=== PATIENT | female | born 1950 | race Caucasian/White ===

== ENCOUNTER 2016-08-31 13:01 | Emergency (ER) | payer BC ==
[2016-08-31 13:19] VITALS: BP 158/92
--- NOTE | 2016-08-31 14:48 | UC ---
Respiratory Complaint HPI - HPI Summary HPI Summary: patient has had one day of chest congestion. hard to take a deep breath, denies any sinus congestion sore throat or fever. - History of Current Complaint Chief Complaint: UCGeneralIllness Stated Complaint: COUGH,CONGESTION Time Seen by Provider: 08/31/16 14:24 Hx Obtained From: Patient ?: No Onset/Duration: Sudden Onset, Lasting Hours Timing: Constant Severity Initially: Moderate Severity Currently: Moderate Pain Intensity: 5 Pain Scale Used: 0-10 Numeric Character: Cough: Nonproductive Aggravating Factors: Deep Breaths, Recumbent Position Alleviating Factors: Nothing Associated Signs And Symptoms: Positive: Dyspnea, Wheezing - Risk Factors Pulmonary Embolism Risk Factors: Negative Cardiac Risk Factors: Negative Pseudomonas Risk Factors: Negative Tuberculosis Risk Factors: Negative - Allergies/Home Medications Allergies/Adverse Reactions: Allergies Allergy/AdvReac Type Severity Reaction Status Date / Time No Known Allergies Allergy Verified 08/31/16 13:19 Home Medications: Home Medications Ascorbic Acid TAB* [Vitamin C TAB*] 500 mg PO DAILY 08/31/16 [History Confirmed 08/31/16] Cholecalciferol TAB* [Vitamin D TAB*] 1,000 unit PO DAILY 08/31/16 [History Confirmed 08/31/16] PMH/Surg Hx/FS Hx/Imm Hx Previously Healthy: Yes Endocrine History Of: Reports: Thyroid Disease - hypothyroid Respiratory History Of: Reports: Asthma - Surgical History Surgical History: Yes Surgery Procedure, Year, and Place: tubal ligation, Breast Augmentation 1999. bowel resection - Family History Known Family History: Positive: None - neg for asthma HTN or CAD - Social History Alcohol Use: Weekly Substance Use Type: None Smoking Status (MU): Former Smoker Type: Cigarettes Amount Used/How Often: 1PPD Length of Time of Smoking/Using Tobacco: 13 years Have You Smoked in the Last Year: No Review of Systems Constitutional: Negative Skin: Negative Eyes: Negative ENT: Negative Respiratory: Shortness Of Breath, Cough Cardiovascular: Negative Gastrointestinal: Negative Genitourinary: Negative Motor: Negative Neurovascular: Negative Musculoskeletal: Negative Neurological: Negative Psychological: Negative All Other Systems Reviewed And Are Negative: Yes Physical Exam Triage Information Reviewed: Yes Appearance: Well-Nourished, Ill-Appearing, Pain Distress Vital Signs: Initial Vital Signs Temp 98.0 F 08/31/16 13:15 Pulse 95 08/31/16 13:15 Resp 16 08/31/16 13:15 BP 158/92 08/31/16 13:15 Pulse Ox 97 08/31/16 13:15 Vital Signs Reviewed: Yes Eye Exam: Normal Eyes: Positive: Conjunctiva Clear ENT Exam: Normal ENT: Positive: Normal ENT inspection, Pharyngeal erythema, TMs normal Dental Exam: Normal Neck exam: Normal Neck: Positive: Supple, Nontender, No Lymphadenopathy Respiratory: Positive: Chest non-tender, No respiratory distress, No accessory muscle use, Crackles - LLL, Wheezing, Inspiration Cardiovascular Exam: Normal Cardiovascular: Positive: RRR, No Murmur, Pulses Normal Abdominal Exam: Normal Abdomen Description: Positive: Nontender, No Organomegaly, Soft Bowel Sounds: Positive: Present Musculoskeletal Exam: Normal Musculoskeletal: Positive: Strength Intact, ROM Intact, No Edema Neurological Exam: Normal Neurological: Positive: Alert, Muscle Tone Normal Psychological Exam: Normal Skin Exam: Normal UC Diagnostic Evaluation - Laboratory O2 Sat by Pulse Oximetry: 97 Respiratory Course/Dx - Course Course Of Treatment: hisotry obtained, exam performed, medication reviewed, chest xray ordered due to adventageaous lung sounds. - Differential Dx/Diagnosis Differential Diagnosis/HQI/PQRI: Aspiration, Asthma, Bronchitis, Influenza, Laryngitis, Sinusitis Provider Diagnoses: Bronchitis Discharge - Discharge Plan Condition: Stable Disposition: HOME Prescriptions: predniSONE TAB* [Deltasone TAB*] 40 mg PO DAILY #10 tab Patient Education Materials: Acute Bronchitis (ED) Additional Instructions: take the medication as prescribed. increase fluid intake, continue with the Advair daily and the albuterol every 4 hours as needed. follow upw ith any increse in symptoms.
--- NOTE | 2016-08-31 14:59 | RAD ---
INDICATION: Chest congestion. COMPARISON: Comparison is made with a prior chest x-ray study from March 28, 2009. TECHNIQUE: Dual-energy PA and lateral views of the chest were obtained. FINDINGS: The heart is within normal limits in size. Mediastinal and hilar contours appear within normal limits. The lungs are hyperinflated and clear. No pleural effusion is seen. IMPRESSION: NO EVIDENCE FOR ACTIVE CARDIOPULMONARY DISEASE.
== END 2016-08-31 15:21 | disposition home or self-care (01) ==
LOC: UCCORT 13:01
DX: J40 Bronchitis, not specified as acute or chronic (principal); Z87.891 Personal history of nicotine dependence
CPT/HCPCS: 71020; 99212; G0463

== ENCOUNTER 2016-12-15 12:51 | Emergency (ER) | payer BC ==
--- NOTE | 2016-12-15 14:43 | UC ---
Throat Pain/Nasal Brenton HPI - HPI Summary HPI Summary: pt presents wqith c/o of nasal congestion, cough and sinus pressure and pain X 7 -10 days. - History of Current Complaint Chief Complaint: UCRespiratory Stated Complaint: COUGH,CONGESTION/CHEST CONGESTION Time Seen by Provider: 12/15/16 14:27 Hx Obtained From: Patient ?: No Onset/Duration: Gradual Onset, Lasting Days - 7-10 Severity: Moderate Cough: Nonproductive Associated Signs & Symptoms: Positive: Sinus Discomfort Related History: Seasonal Allergies - Allergies/Home Medications Allergies/Adverse Reactions: Allergies Allergy/AdvReac Type Severity Reaction Status Date / Time environmental Allergy Eyes Uncoded 12/15/16 14:17 Itchy/Swollen/Red/Watery Home Medications: Home Medications Astelin 1 dose INH DAILY PRN 12/15/16 [History] Guaifenesin [Tussin Mucus & Chest Brenton] 100 mg PO ONCE PRN 12/15/16 [History Confirmed 12/15/16] PMH/Surg Hx/FS Hx/Imm Hx Previously Healthy: Yes Endocrine History Of: Reports: Thyroid Disease - hypothyroid Respiratory History Of: Reports: Asthma - Surgical History Surgical History: Yes Surgery Procedure, Year, and Place: tubal ligation, Breast Augmentation 1999. bowel resection - Family History Known Family History: Positive: Cardiac Disease - Social History Alcohol Use: Weekly Substance Use Type: None Smoking Status (MU): Former Smoker Type: Cigarettes Amount Used/How Often: 1PPD Length of Time of Smoking/Using Tobacco: 13 years Have You Smoked in the Last Year: No Review of Systems Constitutional: Fatigue Skin: Negative Eyes: Negative ENT: Other - nasal congestion, sinus pressure Respiratory: Shortness Of Breath, Cough Cardiovascular: Negative Gastrointestinal: Negative Genitourinary: Negative Motor: Negative Neurovascular: Negative Musculoskeletal: Negative Neurological: Headache Psychological: Negative All Other Systems Reviewed And Are Negative: Yes Physical Exam Triage Information Reviewed: Yes Appearance: Ill-Appearing Vital Signs: Initial Vital Signs Temp 97.9 F 12/15/16 14:10 Pulse 78 12/15/16 14:10 Resp 18 12/15/16 14:10 BP 155/107 12/15/16 14:10 Pulse Ox 95 12/15/16 14:10 Eye Exam: Normal ENT Exam: Other ENT: Positive: Nasal congestion, Other: - maxillary and frontal sinus tenderness , PND Neck exam: Normal Respiratory Exam: Normal Cardiovascular Exam: Normal Musculoskeletal Exam: Normal Neurological Exam: Normal Psychological Exam: Normal Skin Exam: Normal Throat Pain/Nasal Course/Dx - Course Course Of Treatment: I discussed with the pt her elevated BP at today's visit. Pt denies any prior history of HTN and agreed to follow up with her PCP as soon as possible. - Differential Dx/Diagnosis Differential Diagnosis/HQI/PQRI: Sinusitis Provider Diagnoses: sinusitis. cough. elevated blood pressure Discharge - Discharge Plan Condition: Stable Disposition: HOME Prescriptions: Amoxicillin (*) [Amoxicillin 875 MG (*)] 875 mg PO BID #14 tab Benzonatate CAP* [Tessalon 100 MG CAP*] 100 mg PO TID PRN #21 cap PRN Reason: Cough Pseudoephedrine TAB* [Sudafed TAB*] 60 mg PO Q12H #14 tab predniSONE TAB* [Deltasone TAB*] 20 mg PO DAILY #4 tab Patient Education Materials: Sinusitis (ED) Referrals: Mayda Green MD [Primary Care Provider] - If Needed (Please follow up with your PCP or return to clinic as needed. ) Additional Instructions: Please follow up with your PCP as soon as possible regarding the elevated blood pressure finding today or return to clinic.
[2016-12-15 15:00] VITALS: BP 151/102
== END 2016-12-15 14:56 | disposition home or self-care (01) ==
LOC: UCCORT 12:51
DX: J32.9 Chronic sinusitis, unspecified (principal); R05 Cough; R03.0 Elevated blood-pressure reading, without diagnosis of hypertension; E03.9 Hypothyroidism, unspecified
CPT/HCPCS: 99212; G0463

== ENCOUNTER 2018-03-20 16:15 | Emergency (ER) | payer BC ==
[2018-03-20 17:13] VITALS: BP 152/102
[2018-03-20] MEDS ORDERED: Acetaminophen TAB* 325 MG PO ONE (17:15)
--- NOTE | 2018-03-20 17:25 | UC ---
Shoulder Pain HPI - HPI Summary HPI Summary: 67 y/o female presents to the urgent care c/o RT shoulder pain since 03/14/2018. Pt reports she over used her shoulder s/p cleaning the house. Pt w/ Hx of Rotator cuff injury 4 years ago which resolved w/ PT. Pt has taking Ibuprofen PO 400mg PO prn w/o any improvement. Pain now is 9/10 w/ movement, sharp when raising her arm. Pt has appt w/ PCP DR Green on 03/30/2018. Pt dneies fever, numbness or tingling over the RT arm, SOB, chest pain, abdominal pain, N/ V/D - History of Current Complaint Chief Complaint: UCUpperExtremity Stated Complaint: RIGHT SHOULDER PAIN Time Seen by Provider: 03/20/18 17:24 Hx Obtained From: Patient Onset/Duration: Gradual Onset, Lasting Days - 6 days, Still Present, Worse Since - yesterday Timing: Constant Severity Initially: Mild Severity Currently: Moderate Location Of Pain: Is Discrete @ - RT shoulder Pain Intensity: 9 Pain Scale Used: 0-10 Numeric Character: Sharp, Aching, Throbbing Aggravating Factor(s): Movement, Lifting, Abduction Alleviating Factor(s): Rest, OTC Meds Associated Signs And Symptoms: Positive: Negative. Negative: Swelling, Redness , Bruising, Fever, Weakness, Numbness/Tingling Related History: Dominant Hand Right - Risk Factors Non-Orthopedic Risk Factor: Negative DVT Risk Factors: Negative Septic Arthritis Risk Factor: Negative - Allergies/Home Medications Allergies/Adverse Reactions: Allergies Allergy/AdvReac Type Severity Reaction Status Date / Time environmental Allergy Eyes Uncoded 03/20/18 17:02 Itchy/Swollen/Red/Watery Home Medications: Home Medications LORazepam TAB(*) [Ativan 1 MG TAB (*)] 2 mg QPM 03/20/18 [History Confirmed 05/28] Levothyroxine TAB* [Synthorid 112 MCG TAB*] 112 mcg QAM 03/20/18 [History Confirmed 03/20/18] buPROPion SR TAB* [Wellbutrin SR TAB*] 1 tab BID 03/20/18 [History Confirmed 05/28] PMH/Surg Hx/FS Hx/Imm Hx Previously Healthy: Yes Psychological History: Anxiety, Depression - Surgical History Surgical History: Yes Surgery Procedure, Year, and Place: tubal ligation, Breast Augmentation 1999. bowel resection - Family History Known Family History: Positive: Cardiac Disease, Hypertension, Diabetes - Social History Occupation: Retired Lives: With Family Alcohol Use: Weekly Alcohol Amount: "FEW TIMES A WEEK" Substance Use Type: None Smoking Status (MU): Former Smoker Type: Cigarettes Amount Used/How Often: 1PPD Length of Time of Smoking/Using Tobacco: 13 years Have You Smoked in the Last Year: No - Immunization History Most Recent Tetanus Shot: UTD Review of Systems Constitutional: Negative Skin: Negative Eyes: Negative ENT: Negative Respiratory: Negative Cardiovascular: Negative Gastrointestinal: Negative Genitourinary: Negative Motor: Negative Neurovascular: Negative Musculoskeletal: Decreased ROM - RT shoulder, Other: - RT shoulder pain Neurological: Negative Psychological: Negative Is Patient Immunocompromised?: No All Other Systems Reviewed And Are Negative: Yes Physical Exam Triage Information Reviewed: Yes Appearance: Well-Appearing, No Pain Distress, Well-Nourished Vital Signs: Initial Vital Signs Temp 97 F 03/20/18 16:55 Pulse 77 03/20/18 16:55 Resp 18 03/20/18 16:55 BP 152/102 03/20/18 16:55 Pulse Ox 100 03/20/18 16:55 Vital Signs Reviewed: Yes Eye Exam: Normal ENT Exam: Normal ENT: Positive: Normal ENT inspection, Hearing grossly normal, Pharynx normal Dental Exam: Normal Neck exam: Normal Neck: Positive: Supple, Nontender, No Lymphadenopathy Respiratory Exam: Normal Respiratory: Positive: Chest non-tender, Lungs clear, Normal breath sounds Cardiovascular Exam: Normal Cardiovascular: Positive: RRR, No Murmur, Pulses Normal, Brisk Capillary Refill Abdominal Exam: Normal Abdomen Description: Positive: Nontender, No Organomegaly, Soft. Negative: CVA Tenderness (R), CVA Tenderness (L) Bowel Sounds: Positive: Present Musculoskeletal: Positive: Other: - RT shoulder: The L shoulder is with/without obvious asymmetry or deformity when compared to the R shoulder. No surface trauma, ecchymosis, crepitus. No bony deformity or prominence of humeral head. No erythema, warmth. NT to palpation over the clavicle,scapula. positive tenderness over Acromioclavicular joint and humeral head with mild swelling, NT to palpation of the bicipital groove . NT to palpation of the muscles of the sternocleidomastoid, pectoralis, biceps/triceps, deltoid, trapezius, . Limited ROM due to pain especially in adduction and abduction.on both passive and active, internal/external rotation, flexion/extension. "empty can and drop arm test unable to perform due to pain. No axillary tenderness or lymphadenopathy. Normal sensation over the deltoid and fingers. Distal motor and neurovascular status is intact. Neurological Exam: Normal Psychological Exam: Normal Skin Exam: Normal Shoulder Course/Dx - Course Course Of Treatment: 67 y/o female presents to the urgent care c/o RT shoulder pain since Friday03/14/2018. Pt reports she over used her shoulder s/p cleaning the house. Pt w/ Hx of Rotator cuff injury 4 years ago which resolved w / PT. Pt has taking Ibuprofen PO 400mg PO prn w/o any improvement. Pain now is 9 /10 w/ movement, sharp when raising her arm. Pt has appt w/ PCP DR Green on 03/30. Pt dneies fever, numbness or tingling over the RT arm, SOB, chest pain, abdominal pain, N/V/D. Hx obtained. - Differential Dx/Diagnosis Differential Diagnosis/HQI/PQRI: Arthritis, Bursitis, Contusion, Fracture ( Closed), Sprain, Strain, Tendonitis Provider Diagnoses: 1- RT shoulder osteoarthritis. 2-RT shoulder Rotatorcuff tendonitis. 3-Uncontrolled HTN Discharge - Discharge Plan Condition: Stable Disposition: HOME Prescriptions: Naproxen TAB* [Naprosyn 250 mg TAB*] 250 mg PO Q8H PRN #30 tab PRN Reason: Pain Patient Education Materials: Rotator Cuff Tendinitis (ED), Osteoarthritis (ED) , Low-Sodium Diet (ED) Referrals: Jules Mauricio MD [Medical Doctor] - 3 Days Mayda Green MD [Primary Care Provider] - 1 Week Additional Instructions: 1-Please take Naproxen PO q8hrs as directed to alleviate pain and swelling. 2-Please apply ice, keep your shoulder immobilized with the shoulder sling for 3 -4 days and then resume movement slowly 3- Please f/u with Orthopedic DR Mauricio for further evaluation and treatment. 4-F/u PT referral for further management 5-Your BP is elevated today. please decrease salt in your diet, monitor BP and if it continues to be elevated please f/u with your PCP for further management - Billing Disposition and Condition Condition: STABLE Disposition: Home
--- NOTE | 2018-03-20 18:14 | RAD ---
Indication: RIGHT shoulder pain; possible repetitive motion injury. Previous rotator cuff injury. Comparison: August 31, 2016 chest radiograph. Technique: Internal rotation AP, external rotation Grashey, scapular Y, axillary views RIGHT shoulder Report: Negative for fracture. Normal acromioclavicular and glenohumeral joint alignment. Minimal degenerative arthropathy at the acromioclavicular joint with subchondral sclerosis and cystic change. Small inferior acromial bone spur. Sclerosis and cystic change at the greater tuberosity of the humerus typically seen in setting of chronic rotator cuff pathology. Mild glenohumeral joint osteophytosis and joint space narrowing. Negative for calcific tendinopathy. Unremarkable soft tissue contours. IMPRESSION: #. Mild acromioclavicular and glenohumeral joint osteoarthritis, small inferior acromial bone spur, and stigmata of chronic rotator cuff pathology.
== END 2018-03-20 18:42 | disposition home or self-care (01) ==
LOC: UCCORT 16:15
DX: M19.011 Primary osteoarthritis, right shoulder (principal); M75.101 Unspecified rotator cuff tear or rupture of right shoulder, not specified as traumatic; Z87.891 Personal history of nicotine dependence; F41.8 Other specified anxiety disorders
CPT/HCPCS: 99213; A9270-GY; G0463

== ENCOUNTER 2018-08-11 13:03 | Emergency (ER) | payer BC ==
[2018-08-11 14:03] VITALS: BP 165/90
--- NOTE | 2018-08-11 14:37 | UC ---
Respiratory Complaint HPI - HPI Summary HPI Summary: C/O cough x 4 days with some SOB and fatigue. Some congestion. No sore throat. No sinus pain or ear pain.No fevers sweats or chills. - History of Current Complaint Chief Complaint: UCRespiratory Stated Complaint: COUGH,FATIGUE Time Seen by Provider: 08/11/18 14:28 Hx Obtained From: Patient Onset/Duration: Sudden Onset, Lasting Days - 4, Still Present Timing: Constant Severity Initially: Mild Severity Currently: Moderate Pain Intensity: 0 Character: Cough: Productive - clear mostly Aggravating Factors: Recumbent Position Alleviating Factors: Bronchodilator Associated Signs And Symptoms: Positive: Wheezing, URI, Nasal Congestion Related History: Seasonal Allergies - Allergies/Home Medications Allergies/Adverse Reactions: Allergies Allergy/AdvReac Type Severity Reaction Status Date / Time environmental Allergy Eyes Uncoded 08/11/18 13:56 Itchy/Swollen/Red/Watery Home Medications: Home Medications Desvenlafaxine [Desvenlafaxine ER] 1 tab DAILY 08/11/18 [History Confirmed 08/11] Irbesartan 1 tab DAILY 08/11/18 [History Confirmed 08/11/18] Loratadine [Claritin 10 MG CAP] 1 tab DAILY 08/11/18 [History Confirmed 08/11/18 ] PMH/Surg Hx/FS Hx/Imm Hx Endocrine History: Hypothyroidism Cardiovascular History: Hypertension Respiratory History: Asthma - Surgical History Surgical History: Yes Surgery Procedure, Year, and Place: tubal ligation, Breast Augmentation 1999. bowel resection - Family History Known Family History: Positive: Cardiac Disease, Hypertension, Diabetes - Social History Occupation: Employed Full-time Lives: Alone Alcohol Use: Weekly Alcohol Amount: "FEW TIMES A WEEK" Substance Use Type: None Smoking Status (MU): Former Smoker Type: Cigarettes Amount Used/How Often: 1PPD Length of Time of Smoking/Using Tobacco: 13 years Have You Smoked in the Last Year: No - Immunization History Most Recent Tetanus Shot: UTD Review of Systems All Other Systems Reviewed And Are Negative: Yes Constitutional: Positive: Fatigue ENT: Positive: Nasal Discharge Respiratory: Positive: Shortness Of Breath, Cough Is Patient Immunocompromised?: No Physical Exam Triage Information Reviewed: Yes Appearance: No Pain Distress, Well-Nourished, Ill-Appearing Vital Signs: Initial Vital Signs Temp 96.9 F 01/01/19 14:01 Pulse 76 08/11/18 14:01 Resp 16 08/11/18 14:01 BP 165/90 08/11/18 14:01 Pulse Ox 96 08/11/18 14:01 Vital Signs Reviewed: Yes Eyes: Positive: Conjunctiva Clear ENT: Positive: Pharynx normal, Nasal congestion, TMs normal Neck exam: Normal Respiratory: Positive: Lungs clear - 4 hours after albuterol Cardiovascular Exam: Normal Musculoskeletal Exam: Normal Neurological Exam: Normal Psychological Exam: Normal Skin Exam: Normal UC Diagnostic Evaluation - Laboratory O2 Sat by Pulse Oximetry: 96 Respiratory Course/Dx - Differential Dx/Diagnosis Differential Diagnosis/HQI/PQRI: Asthma, Lower Resp Infection, Sinusitis Provider Diagnosis: Upper respiratory infection, Asthma with acute exacerbation Discharge - Sign-Out/Discharge Documenting (check all that apply): Patient Departure All imaging exams completed and their final reports reviewed: No Studies - Discharge Plan Condition: Stable Disposition: HOME Prescriptions: predniSONE TAB* [Deltasone 20 MG TAB*] 60 mg PO DAILY #18 tab Patient Education Materials: Upper Respiratory Infection (ED), Asthma (ED), Prednisone (By mouth) Referrals: Mayda Green MD [Primary Care Provider] - Additional Instructions: NASAL SPRAYS AND DROPS: Afrin in the PUMP/ MIST bottle (Get generic 12 hours nasal decongestant spray). Tilt your head down and look at the floor while doing a strong sniff with the spray. Decongestant nasal sprays and drops often give dramatic relief from congestion. They are often recommended for patients with sinus infection to assist with sinus drainage. Persons with high blood pressure should consult the doctor before using these nasal sprays. Afrin and Nicholas-Synephrine are common [id number] preparations. They should not be used for more than five days, as "rebound" congestion can occur - - the congestion flares as the drug wears off. A way of dealing with this rebound congestion problem is to medicate only one nostril each time, allowing the other nostril to recover from the medicine' s effects. When you no longer need the drug during the day, spray only one nostril each night. This helps you sleep well without severe rebound congestion. Call the doctor if you develop severe headache, palpitations, or chest pain. - Billing Disposition and Condition Condition: STABLE Disposition: Home
== END 2018-08-11 14:47 | disposition home or self-care (01) ==
LOC: UCCORT 13:03
DX: J06.9 Acute upper respiratory infection, unspecified (principal); J45.901 Unspecified asthma with (acute) exacerbation; Z87.891 Personal history of nicotine dependence; I10 Essential (primary) hypertension
CPT/HCPCS: 99212; G0463

== ENCOUNTER 2018-09-17 14:33 | Emergency (ER) | payer BC ==
[2018-09-17 16:22] VITALS: BP 138/88
--- NOTE | 2018-09-17 16:58 | UC ---
Throat Pain/Nasal [place] HPI - HPI Summary HPI Summary: 68-year-old female presents with complaints of right maxillary sinus pressure and nasal congestion. States she was seen by her primary care provider 10 days ago for URI symptoms and cough. She was prescribed a course of azithromycin with 2 refills. She states that she completed the first course and did have some improvement in her symptoms especially the cough but 2 days ago noted some increased sinus congestion so she started her second course of azithromycin. She has prescription for fluticasone nasal spray but uses sporadically. She has not taken anything else for her symptoms. Patient is concerned because she is supposed to be leaving for a cruise to the [facility] tomorrow. Denies fever , chills, ear pain, dizziness, vertigo, sore throat, chest pain, shortness of breath, wheezing, abdominal pain, nausea, vomiting, or diarrhea. - History of Current Complaint Chief Complaint: UCRespiratory Stated Complaint: SINUS Time Seen by Provider: 09/17/18 16:40 Hx Obtained From: Patient Pain Intensity: 0 - Allergies/Home Medications Allergies/Adverse Reactions: Allergies Allergy/AdvReac Type Severity Reaction Status Date / Time No Known Allergies Allergy Verified 09/17/18 16:15 Home Medications: Home Medications Azithromycin TAB* [Zithromax TAB (Z-MARGI) 250 mg #6 tabs] 1 tab DAILY 09/17/18 [ History Confirmed 09/17/18] PMH/Surg Hx/FS Hx/Imm Hx - Additional Past Medical History Additional PMH: Environmental allergies Endocrine History: Hypothyroidism Cardiovascular History: Hypertension Psychological History: Anxiety - Surgical History Surgical History: Yes Surgery Procedure, Year, and Place: tubal ligation, Breast Augmentation 1999. bowel resection - Family History Known Family History: Positive: Cardiac Disease, Hypertension, Diabetes - Social History Occupation: Employed Full-time Lives: Alone Alcohol Use: Weekly Alcohol Amount: "FEW TIMES A WEEK" Substance Use Type: None Smoking Status (MU): Former Smoker Type: Cigarettes Amount Used/How Often: 1PPD Length of Time of Smoking/Using Tobacco: 13 years Have You Smoked in the Last Year: No - Immunization History Most Recent Tetanus Shot: UTD Review of Systems All Other Systems Reviewed And Are Negative: Yes Constitutional: Negative: Fever, Chills Eyes: Negative: Drainage, Eye Redness ENT: Positive: Nasal Discharge, Sinus Congestion, Sinus Pain/Tenderness. Negative: Sore Throat, Ear Ache Respiratory: Negative: Shortness Of Breath, Cough Cardiovascular: Negative: Palpitations, Chest Pain Gastrointestinal: Negative: Abdominal Pain, Vomiting, Diarrhea, Nausea Genitourinary: Positive: Negative Musculoskeletal: Positive: Negative Neurological: Positive: Negative Is Patient Immunocompromised?: No Physical Exam - Summary Physical Exam Summary: GENERAL APPEARANCE: Well developed, well nourished, alert and cooperative, and appears to be in no acute distress. EYES: Conjunctiva clear. No discharge. Vision is grossly intact. EARS: External auditory canals and tympanic membranes clear, hearing grossly intact. NOSE: Mild nasal congestion. Mild right maxillary sinus tenderness with percussion. THROAT: Pharynx normal. No tonsilar inflammation, swelling, exudate, or lesions. NECK: Neck supple, non-tender without lymphadenopathy. CARDIAC: Normal S1 and S2. No S3, S4 or murmurs. Rhythm is regular. There is no peripheral edema, cyanosis or pallor. Extremities are warm and well perfused. Capillary refill is less than 2 seconds. LUNGS: Clear to auscultation without rales, rhonchi, wheezing or diminished breath sounds. ABDOMEN: Positive bowel sounds. Soft, nondistended, nontender. No guarding or rebound. No masses or hepatosplenomegally. MUSKULOSKELETAL: ROM intact to all extremities. No joint erythema or tenderness. Normal muscular development. Normal gait. SKIN: Skin normal color, texture and turgor with no lesions or eruptions. Triage Information Reviewed: Yes Vital Signs: Initial Vital Signs Temp 97.3 F 09/17/18 16:18 Pulse 80 09/17/18 16:18 Resp 16 09/17/18 16:18 BP 138/88 09/17/18 16:18 Pulse Ox 98 09/17/18 16:18 Vital Signs Reviewed: Yes Throat Pain/Nasal Course/Dx - Course Assessment/Plan: 68-year-old female presents with complaints of right maxillary sinus pressure and nasal congestion. States she was seen by her primary care provider 10 days ago for URI symptoms and cough. She was prescribed a course of azithromycin with 2 refills. She states that she completed the first course and did have some improvement in her symptoms especially the cough but 2 days ago noted some increased sinus congestion so she started her second course of azithromycin. She has prescription for fluticasone nasal spray but uses sporadically. She has not taken anything else for her symptoms. Patient is concerned because she is supposed to be leaving for a cruise to the [facility] tomorrow. Denies fever, chills, ear pain, dizziness, vertigo, sore throat, chest pain, shortness of breath, wheezing, abdominal pain, nausea, vomiting, or diarrhea. Afebrile. Vital signs stable. Exam reveals a normal diet female in no acute distress with mild nasal congestion, mild tenderness over the right maxillary sinus, and otherwise unremarkable exam. I recommended that she finish her current course of antibiotics and begin symptomatic treatment with saline rinses and daily use of her fluticasone nasal spray. I have cautioned her against feeling her another refill of her azithromycin considering its long half-life and potential to cause QT prolongation. She is to follow-up with her primary care provider when she returns from her cruise in 7 days if symptoms are not improving. Anticipatory guidance and warning symptoms were reviewed with the patient. Verbalizes understanding and agrees with plan of care. - Differential Dx/Diagnosis Differential Diagnosis/HQI/PQRI: Sinusitis, URI Provider Diagnosis: Sinusitis Discharge - Sign-Out/Discharge Documenting (check all that apply): Patient Departure All imaging exams completed and their final reports reviewed: No Studies - Discharge Plan Condition: Stable Disposition: HOME Patient Education Materials: Sinusitis (ED) Referrals: Mayda Green MD [Primary Care Provider] - 7 Days (If no improvment in symptoms.) Additional Instructions: Your history and exam are consistent with a sinus infection. Finish the antibiotics that were prescribed to you by your primary care provider. Drink plenty of fluids to avoid dehydration especially if you are running any fever. Use a saline rinse kit such as Neti Pot or NeilMed at least twice a day to help thin secretions and promote drainage of the sinuses. Use your fluticasone (Flonase) nasal spray 2 sprays each nostril once daily. Take over the counter acetaminophen (Tylenol) or ibuprofen (Advil, Motrin) according to directions as needed for pain or fever. Follow up with your primary care provider in 7 days if symptoms persist. Seek immediate medical attention in the emergency room if you have fever greater than 100.5 F despite taking acetaminophen or ibuprofen, have chest pain , difficulty breathing, are unable to swallow, or have any worsening of symptoms. - Billing Disposition and Condition Condition: STABLE Disposition: Home - Attestation Statements Provider Attestation: Patient not seen or examined by me. I was available for consult. I did not diagnose or disposition this patient.
== END 2018-09-17 17:02 | disposition home or self-care (01) ==
LOC: UCCORT 14:33
DX: J32.9 Chronic sinusitis, unspecified (principal); I10 Essential (primary) hypertension; Z87.891 Personal history of nicotine dependence
CPT/HCPCS: 99211; G0463